=== PATIENT | female | born 1945 | race American Indian/Alaskan Native ===

== ENCOUNTER 2018-04-17 17:26 | Inpatient (IN) | payer MEDICARE ==
[2018-04-17] MEDS ORDERED: ASPIRIN PO ONE (17:38)
[2018-04-17 18:07] LABS: Basophils % (Auto) 0.3 % (0.0-1.8); Eosinophils # (Auto) 0.1 K/mm3 (0.0-0.4); Eosinophils % (Auto) 0.5 % (0.0-4.3); Hematocrit 44.7 % (30.3-42.9); Hemoglobin 14.3 gm/dl (10.1-14.3); Lymphocytes # (Auto) 2.4 K/mm3 (1.2-5.4); Lymphocytes % (Auto) 21.2 % (13.4-35.0); Mean Corpuscular HGB Conc 32 % (30-34); Mean Corpuscular Volume 80 fl (79-97); Monocytes # (Auto) 1.3 K/mm3 (0.0-0.8); Monocytes % (Auto) 11.3 % (0.0-7.3); Platelet Count 229 K/mm3 (140-440); Red Blood Count 5.58 M/mm3 (3.65-5.03); Red Cell Distribution Width 15.6 % (13.2-15.2)
[2018-04-17 18:08] LABS: Mean Corpuscular Hemoglobin 26 pg (28-32)
[2018-04-17 18:58] LABS: BUN/Creatinine Ratio 28; Blood Urea Nitrogen 42 mg/dL (7-17); Calcium 8.9 mg/dL (8.4-10.2); Hemolysis Index 5
[2018-04-17] MEDS ORDERED: ASPIRIN ONE (21:03)
--- NOTE | 2018-04-17 22:44 | Emergency Department Report ---
HPI - General Chief Complaint: Abdominal Pain Time Seen by Provider: 04/17/18 22:26 - HPI HPI: Room 7 The patient is a 72-year-old female presented with a chief complaint of intermittent abdominal and chest pain. The patient states the past 3 weeks she' s had intermittent pain in the lower abdomen but also realizes up to the left chest. Patient describes the pain as a burning pressure-like pain that lasts several minutes when it comes on. Patient denies shortness of breath, nausea/ vomiting or diaphoresis with her chest discomfort. There is no history of cough. The patient states she's never had a stress test or cardiac catheterization Location: [See above] Duration: Intermittent 3 weeks Quality: Burning/pressure Severity: Moderate Modifying factors: [see above] Context: [see above] Mode of transportation: [not driving] ED Past Medical Hx - Past Medical History Hx Hypertension: Yes Hx of Cancer: Yes (breast CA s/p xrt/chemo in remission) Hx Arthritis: Yes - Surgical History Additional Surgical History: Breast surgery - Family History Family history: no significant - Social History Smoking Status: Former Smoker (none 6 months) Substance Use Type: None ED Review of Systems ROS: Stated complaint: ABDOMINAL PAIN Other details as noted in HPI Constitutional: denies: diaphoresis, fever Eyes: denies: eye pain ENT: denies: throat pain Respiratory: denies: shortness of breath Cardiovascular: chest pain Gastrointestinal: abdominal pain. denies: nausea, vomiting Genitourinary: denies: dysuria Musculoskeletal: denies: back pain Neurological: denies: headache Physical Exam - Physical Exam Vital Signs: Vital Signs 04/17/18 04/17/18 04/17/18 17:30 20:35 20:43 Temperature 98.6 F 98.1 F Pulse Rate 73 68 Respiratory 18 18 19 Rate Blood Pressure 157/88 Blood Pressure 139/77 [Right] O2 Sat by Pulse 97 98 99 Oximetry 04/17/18 04/17/18 04/17/18 20:45 21:00 21:15 Temperature Pulse Rate 66 63 65 Respiratory 15 16 19 Rate Blood Pressure 139/77 154/81 160/89 Blood Pressure [Right] O2 Sat by Pulse 96 96 97 Oximetry 04/17/18 04/17/18 21:28 21:30 Temperature Pulse Rate 56 L Respiratory 17 19 Rate Blood Pressure 171/84 Blood Pressure [Right] O2 Sat by Pulse 98 98 Oximetry Physical Exam: GENERAL: The patient is well-developed well-nourished female sitting on stretcher eating Fritos not appearing to be in acute distress. [] HEENT: Normocephalic. Atraumatic. Extraocular motions are intact. Patient has moist mucous membranes. NECK: Supple. Trachea midline CHEST/LUNGS: Clear to auscultation. There is no respiratory distress noted. HEART/CARDIOVASCULAR: Regular. There is no tachycardia. There is no gallop rub or murmur. ABDOMEN: Abdomen is soft, with mild discomfort to palpation in the left lower quadrant. There is no rebound or guarding. Patient has normal bowel sounds. There is no abdominal distention. SKIN: There is no rash. There is no diaphoresis. NEURO: The patient is awake, alert, and oriented. The patient is cooperative. The patient has normal speech MUSCULOSKELETAL: There is no evidence of acute injury. ED Course Vital Signs 04/17/18 04/17/18 04/17/18 17:30 20:35 20:43 Temperature 98.6 F 98.1 F Pulse Rate 73 68 Respiratory 18 18 19 Rate Blood Pressure 157/88 Blood Pressure 139/77 [Right] O2 Sat by Pulse 97 98 99 Oximetry 04/17/18 04/17/18 04/17/18 20:45 21:00 21:15 Temperature Pulse Rate 66 63 65 Respiratory 15 16 19 Rate Blood Pressure 139/77 154/81 160/89 Blood Pressure [Right] O2 Sat by Pulse 96 96 97 Oximetry 04/17/18 04/17/18 21:28 21:30 Temperature Pulse Rate 56 L Respiratory 17 19 Rate Blood Pressure 171/84 Blood Pressure [Right] O2 Sat by Pulse 98 98 Oximetry ED Medical Decision Making - Lab Data Result diagrams: 04/17/18 17:49 04/17/18 17:49 Laboratory Tests 04/17/18 04/17/18 04/17/18 17:49 17:49 19:27 WBC 11.4 H RBC 5.58 H Hgb 14.3 Hct 44.7 H MCV 80 MCH 26 L MCHC 32 RDW 15.6 H Plt Count 229 Lymph % (Auto) 21.2 [place] % (Auto) 11.3 H Eos % (Auto) 0.5 Baso % (Auto) 0.3 Lymph # 2.4 [place] # 1.3 H Eos # 0.1 Baso # 0.0 Seg Neutrophils % 66.7 Seg Neutrophils # 7.6 Sodium 138 Potassium 3.4 L Chloride 94.3 L Carbon Dioxide 25 Anion Gap 22 BUN 42 H Creatinine 1.5 H Estimated GFR 41 BUN/Creatinine Ratio 28 Glucose 188 H Calcium 8.9 Troponin T < 0.010 < 0.010 - EKG Data -: EKG Interpreted by Me EKG shows normal: sinus rhythm Rate: normal - EKG Data When compared to previous EKG there are: previous EKG unavailable Interpretation: other (no ischemic changes seen) - Radiology Data Radiology results: report reviewed (CT abdomen and pelvis, chest x-ray), image reviewed (CT abdomen and pelvis, chest x-ray) interpreted by me: Chest x-ray-no focal infiltrates, no pneumothorax CT abdomen and pelvis (read by radiologist)-minimally complex renal cyst. Recommend follow-up 6 months to evaluate for stability. Otherwise no acute findings Chest x-ray (read by radiologist)-negative single view chest x-ray - Differential Diagnosis ACS, pericarditis, diverticulitis, GERD Critical care attestation.: If time is entered above; I have spent that time in minutes in the direct care of this critically ill patient, excluding procedure time. ED Disposition Clinical Impression: Chest pain, Abdominal discomfort Disposition: DC-09 OP ADMIT IP TO THIS HOSP Is pt being admited?: Yes Does the pt Need Aspirin: Yes Condition: Fair Instructions: Chest Pain (ED), Abdominal Pain (ED) Referrals: PRIMARY CARE, [Primary Care Provider] - 3-5 Days Time of Disposition: 23:42 (hospitalist paged (Dr Marti))
--- NOTE | 2018-04-17 23:17 | XRay Report ---
FINAL REPORT EXAM: XR CHEST 1V AP HISTORY: chest pain TECHNIQUE: upright single view chest PRIORS: None. FINDINGS: Cardiac and mediastinal contours are unremarkable. No focal pulmonary infiltrate is identified. No pleural fluid collection seen. Pulmonary vasculature is unremarkable. IMPRESSION: Negative single-view chest
--- NOTE | 2018-04-17 23:28 | Cat Scan Report ---
FINAL REPORT EXAM: CT ABDOMEN PELVIS WO CON HISTORY: left lower quadrant tenderness TECHNIQUE: CT abdomen and pelvis without contrast PRIORS: None. FINDINGS: No acute abnormality identified in the lung bases. No focal abnormality identified within the liver parenchyma. The spleen demonstrates normal size and attenuation. No pancreatic abnormalities seen. The right kidney demonstrates no evidence for hydronephrosis or nephrolithiasis. There is a 1 centimeter hyperdense structure lower pole right kidney which is intrarenal most likely hyperdense cyst. The left kidney demonstrates no evidence for hydronephrosis. At the mid left kidney there is a cortical complex appearing 1.3 x 1.0 centimeter structure thick calcifications incompletely characterized however most consistent with a minimally complex cyst. The adrenal glands are unremarkable. Abdominal aorta is normal in caliber. No pathologically enlarged lymph nodes are identified. No signs of free fluid or free air No evidence of small bowel dilatation. No evidence of colonic dilatation. No pericolonic inflammatory change seen. IMPRESSION: Minimally complex renal cysts. Recommend followup approximately 6 months to evaluate for stability. Otherwise no acute findings
[2018-04-18] MEDS ORDERED: MORPHINE IV PRN (00:39)
[2018-04-18] MEDS ORDERED: ZOFRAN IV PRN (00:40)
[2018-04-18] MEDS ORDERED: TYLENOL PO PRN (00:41)
[2018-04-18] MEDS ORDERED: NITROSTAT SL PRN (00:42)
[2018-04-18] MEDS ORDERED: XANAX PO PRN (00:43)
[2018-04-18] MEDS: HEPARIN SUB-Q SCH ×3 (00:50→21:34)
[2018-04-18] MEDS ORDERED: HEPARIN ONE (00:56)
[2018-04-18] MEDS: NITRO-BID 2% TP SCH ×5 (03:32→17:45)
[2018-04-18] MEDS ORDERED: NORCO 5/325 PO PRN (04:41)
[2018-04-18 05:50] LABS: BUN/Creatinine Ratio 29; Blood Urea Nitrogen 41 mg/dL (7-17); Calcium 8.5 mg/dL (8.4-10.2); Hemolysis Index 8
[2018-04-18 05:52] LABS: Creatine Kinase MB < 1.0 ng/mL (0.0-4.0)
[2018-04-18] MEDS ORDERED: K-DUR PO NR (07:47)
[2018-04-18] MEDS: XANAX PO SCH ×3 (08:00→21:34)
[2018-04-18] MEDS ORDERED: LEXISCAN IV NR (08:54)
[2018-04-18] MEDS ORDERED: COREG PO SCH (10:00)
[2018-04-18] MEDS ORDERED: BIFID ANIMALIS PO SCH (10:00)
[2018-04-18] MEDS ORDERED: QUINAPRIL HCL 40 MG PO SCH (10:00)
[2018-04-18] MEDS ORDERED: ZESTRIL PO SCH (10:00)
[2018-04-18] MEDS ORDERED: NON-FORMULARY (Solifenacin Succinate [Vesicare] 5 MG) PO SCH (10:00)
[2018-04-18] MEDS ORDERED: BUMEX PO SCH (10:00)
[2018-04-18] MEDS ORDERED: NON-FORMULARY (Bumetanide [Bumetanide 2 Mg Tab] 2 MG) PO SCH (10:00)
[2018-04-18] MEDS ORDERED: ACIDOPHILUS PO SCH (10:00)
--- NOTE | 2018-04-18 10:23 | Consultation ---
History of Present Illness - Reason for Consult Consult date: 04/18/18 acute renal failure, chronic renal failure - History of Present Illness patient with h/o HTN and CKD) does not know what stage) was admitted to worsening abd and chest pain. CT pelvis was negative for acute process but did show L complex renal cyst. chest xway was negative for pulm edema and negative troponin. renal consult was requested for abnormal kidney function, according to patient she has kidney disease and she does follow up with a clerk of works ( Dr Alves). Past History Past Medical History: hypertension (CKD), other (CKD) Medications and Allergies Allergies Allergy/AdvReac Type Severity Reaction Status Date / Time No Known Allergies Allergy Verified 04/17/18 21:05 Home Medications Medication Instructions Recorded Confirmed Last Taken Type ALPRAZolam [Xanax] 1 mg PO TID 04/18/18 04/18/18 Unknown History Bumetanide [Bumetanide 2 mg tab] 2 mg PO DAILY 04/18/18 04/18/18 Unknown History Carvedilol [Coreg] 6.25 mg PO DAILY 04/18/18 04/18/18 Unknown History Fluticasone [Flonase] 1 spray NS QDAY 04/18/18 04/18/18 Unknown History HYDROcodone/ACETAMINOPHEN 1 each PO Q6H PRN 04/18/18 04/18/18 Unknown History [Hydrocodon-Acetaminophen 5-325] L. Acidophilus/Bifid. Animalis 1 each PO DAILY 04/18/18 04/18/18 Unknown History [One-A-Day Trubiotics Capsule] Quinapril HCl 40 mg PO DAILY 04/18/18 04/18/18 Unknown History Solifenacin Succinate [Vesicare] 5 mg PO DAILY 04/18/18 04/18/18 Unknown History Active Meds: Active Medications Acetaminophen (Tylenol) 650 mg PO Q4H PRN PRN Reason: For Pain/Fever/Headache Acetaminophen/Hydrocodone Bitart (Muir 5/325) 1 each PO Q6H PRN PRN Reason: Pain Alprazolam (Xanax) 1 mg PO TID [facility] Last Admin: 04/18/18 08:00 Dose: Not Given Aspirin (Aspirin) 325 mg PO QDAY [facility] Bumetanide (Bumex) 2 mg PO DAILY [place] Bumetanide (Bumex) 1 mg PO QDAY [facility] Carvedilol (Coreg) 6.25 mg PO DAILY [facility] Carvedilol (Coreg) 12.5 mg PO BID [facility] Fluticasone Propionate (Flonase) 50 mcg NS QDAY [facility] Heparin Sodium (Porcine) (Heparin) 5,000 unit SUB-Q Q12HR [facility] Last Admin: 04/18/18 00:50 Dose: 5,000 unit Miscellaneous Medication (L. Acidophilus/Bifid. Animalis [One-A-Day Trubiotics Capsule]) 1 each PO DAILY [facility] Miscellaneous Medication (Solifenacin Succinate [Vesicare]) 5 mg PO DAILY [facility] Morphine Sulfate (Morphine) 2 mg IV Q5MIN PRN PRN Reason: Chest Pain Nitroglycerin (Nitrostat) 0.4 mg SL .Q5MIN PRN PRN Reason: Chest Pain Nitroglycerin (Nitro-Bid 2%) 1 inch TP QIDNTG [facility]; Protocol Last Admin: 04/18/18 06:57 Dose: Not Given Ondansetron HCl (Zofran) 4 mg IV Q6H PRN PRN Reason: Nausea And Vomiting Pneumococcal Polyvalent Vaccine (Pneumovax 23) 0.5 ml IM .ONCE ONE Stop: 04/18/18 12:01 Review of Systems All systems: negative (chest pain, abdominal pain) Exam - Vital Signs Vital signs: Vital Signs Temp Pulse Resp BP Pulse Ox 98.6 F 73 18 157/88 97 04/17/18 17:30 04/17/18 17:30 04/17/18 17:30 04/17/18 17:30 04/17/18 17:30 - General Appearance General appearance: well-developed, well-nourished, appears stated age EENT: ATNC, PERRL, mucous membranes moist Neck: Present: neck supple Respiratory: Clear to Ascultation Heart: regular, S1S2 Gastrointestinal: Present: normoactive bowel sounds. Absent: tenderness, distended, obese Integumentary: no rash, warm and dry Neurologic: no focal deficit, no asterixis, alert and oriented x3 Musculoskeletal: Present: other (no edema in BLE) Psychiatric: mood/affect appropriate, cooperative Results - Lab Results 04/17/18 17:49 04/18/18 04:39 Most recent lab results Calcium 8.5 mg/dL (8.4-10.2) 04/18/18 04:39 Assessment and Plan acute on chronic kidney failure - unclear baseline, CKD according to patient - no pulm congestion or edema, will decrease bumex to 1m g qday - will hold lisinopril for now - urine lytes and protein ordered - renally dose meds - renal diet - strict I&O - daily weights Chest pain - stress test this AM - negative troponin but elevated D-dimer - on ASA Abd pain - CT abd pelvis negative for acute prcoess HTN - will d/c lisinopril as above, will increase coreg to 12.5 mg BID Cyst of the kidney - will need to be followed as an outpatient thank you for allowing to participate in Ms Cabrera's care. please call me with if you have questions [phone]
[2018-04-18] MEDS: ASPIRIN PO SCH (11:29)
[2018-04-18] MEDS: FLONASE NS SCH (11:30)
[2018-04-18] MEDS ORDERED: PNEUMOVAX 23 IM ONE (12:00)
[2018-04-18] MEDS ORDERED: K-DUR PO ONE (12:22)
--- NOTE | 2018-04-18 14:05 | Event Note ---
Date: 04/18/18 Pt seen and examined Presented with abdominal pain and PABLO Noted elevated d-dimer, will obtain VQ scan for possible PE cont current mx and plan as dictated in H and P.
[2018-04-18 17:15] LABS: Creatine Kinase MB < 1.0 ng/mL (0.0-4.0)
[2018-04-18 18:24] LABS: Creatinine,Urine 42.7 mg/dL (0.1-20.0); Protein/Creatinine Ratio,Urine 0.14
[2018-04-18 18:30] LABS: Creatinine,Urine 42.7 mg/dL (0.1-20.0)
[2018-04-18] MEDS: COREG PO SCH (21:33)
[2018-04-19] MEDS: NITRO-BID 2% TP SCH ×2 (05:51→10:40)
[2018-04-19] MEDS ORDERED: PEPCID PO SCH (10:00)
[2018-04-19] MEDS ORDERED: BUMEX PO SCH (10:00)
[2018-04-19] MEDS: XANAX PO SCH (10:38)
[2018-04-19] MEDS: ASPIRIN PO SCH (10:38)
[2018-04-19] MEDS: FLONASE NS SCH (10:39)
[2018-04-19] MEDS: COREG PO SCH (10:39)
[2018-04-19] MEDS: HEPARIN SUB-Q SCH (10:40)
[2018-04-19 10:48] LABS: Basophils % (Auto) 0.4 % (0.0-1.8); Eosinophils # (Auto) 0.1 K/mm3 (0.0-0.4); Eosinophils % (Auto) 1.5 % (0.0-4.3); Hematocrit 44.6 % (30.3-42.9); Hemoglobin 14.5 gm/dl (10.1-14.3); Lymphocytes # (Auto) 2.5 K/mm3 (1.2-5.4); Lymphocytes % (Auto) 26.3 % (13.4-35.0); Mean Corpuscular HGB Conc 32 % (30-34); Mean Corpuscular Volume 80 fl (79-97); Monocytes # (Auto) 0.9 K/mm3 (0.0-0.8); Monocytes % (Auto) 9.4 % (0.0-7.3); Platelet Count 184 K/mm3 (140-440); Red Blood Count 5.59 M/mm3 (3.65-5.03); Red Cell Distribution Width 15.1 % (13.2-15.2)
[2018-04-19 10:51] LABS: Mean Corpuscular Hemoglobin 26 pg (28-32)
--- NOTE | 2018-04-19 12:49 | Nuclear Perfusion Study ---
SINGLE ISOTOPE DUAL STUDY MYOCARDIAL PERFUSION SCAN REFERRING PHYSICIAN: Clement Marti MD, hospitalist DESCRIPTION OF PROCEDURE: The patient received 10 mCi of technetium 99m Myoview intravenously under resting conditions. Resting myocardial perfusion scan was done. Subsequently, the patient underwent Lexiscan stress test as per the protocol. During Lexiscan stress test, the patient received 28 mCi of technetium 99m Myoview intravenously. After 30-60 minutes, post stress images were done. Computerized reconstruction images were performed for analysis. The post-stress images revealed uniform distribution of the radiopharmaceutical in the left ventricular myocardium. Cinematic display of the gated study did not reveal any wall motion abnormality. The left ventricular function was normal and was calculated to be 73%. The resting images were also normal. CONCLUSION: 1. No perfusion abnormality of the left ventricular myocardium was demonstrated in the resting as well as stress images obtained after the patient underwent Lexiscan stress test. 2. No wall motion abnormality. 3. Normal left ventricular ejection fraction of 73%. [facility]
--- NOTE | 2018-04-19 14:29 | Discharge Summary ---
Providers - Providers Date of Admission: 04/18/18 00:35 Date of discharge: 04/19/18 Attending physician: KEN BARR 04/18/18 06:52 Consult to Physician [CONS] Routine Comment: Consulting Provider: BLANCA GONG Physician Instructions: Reason For Exam: PABLO 04/19/18 13:32 Physical Therapy Evaluation and Treat [CONS] Routine Comment: Reason For Exam: placement Primary care physician: MAO QUESADA Hospitalization Condition: Fair Hospital course: Discharge diagnosis: /acute on chronic kidney failure /Chest pain, likely GERD /Abd pain, resolved - CT abd pelvis negative for acute prcoess /HTN - d/c lisinopril and increased coreg to 12.5 mg BID /Cyst of the kidney - will need to be followed as an outpatient /Elevated d-dimer, VQ scan obtained Disposition: TO HOME OR SELFCARE Time spent for discharge: 32 minutes Core Measure Documentation - Palliative Care Palliative Care/ Comfort Measures: Not Applicable - Core Measures Any of the following diagnoses?: none Exam - Constitutional Vitals: Temp Pulse Resp BP Pulse Ox 98.4 F 71 20 116/53 100 04/19/18 12:00 04/19/18 12:00 04/19/18 12:00 04/19/18 12:00 04/19/18 12:00 General appearance: Present: no acute distress, well-nourished - EENT Eyes: Present: PERRL ENT: hearing intact, clear oral mucosa - Neck Neck: Present: supple, normal ROM - Respiratory Respiratory effort: normal Respiratory: bilateral: CTA - Cardiovascular Heart Sounds: Present: S1 & S2. Absent: rub, click - Extremities Extremities: pulses symmetrical, No edema Peripheral Pulses: within normal limits - Abdominal General gastrointestinal: Present: soft, non-tender, non-distended, normal bowel sounds - Integumentary Integumentary: Present: clear, warm, dry - Musculoskeletal Musculoskeletal: gait normal, strength equal bilaterally - Psychiatric Psychiatric: appropriate mood/affect, intact judgment & insight - Neurologic Neurologic: CNII-XII intact, moves all extremities Plan Activity: advance as tolerated Weight Bearing Status: Weight Bear as Tolerated Diet: low fat, low salt, renal Follow up with: PRIMARY CARE, [Referring] - 3-5 Days Prescriptions: AtorvaSTATin [Lipitor] 20 mg PO QHS #30 tab Aspirin [Aspirin EC] 81 mg PO DAILY #30 tablet. Bumetanide [Bumex 1 mg tab] 1 mg PO QDAY #20 tablet Carvedilol [Coreg] 12.5 mg PO BID #60 tablet
[2018-04-19 15:34] VITALS: BP 120/70
--- NOTE | 2018-04-19 16:03 | Progress Note ---
Assessment and Plan Acute on chronic kidney disease: -Renal function reviewed, stable, SCr level was 1.4 today, yesterday's SCr level was 1.4 -Renally dose meds -On bumex 1 mg orally once a day -Howard Catheter: No -Renal plan d/w Dr Mcintyre -Continue supportive therapy Chest pain: -Stress test (draft report) showed no perfusion abnormality of left myocardium, no wall motion abnormality, and normal LVEF 73% -Negative troponin but elevated D-dimer -On ASA Abdominal Pain: -CT abd pelvis negative for acute process Essential Hypertension: -On coreg 12.5 mg orally BID -Holding lisinopril Cyst of the kidney: -Will need to be followed as an outpatient Subjective Date of service: 04/19/18 Interval history: Pt reports feeling ok today, no complaints voiced, states she is getting discharged home today. No family at bedside Objective - Vital Signs Vital signs: Vital Signs - 12hr 04/19/18 04/19/18 04/19/18 05:09 05:52 07:20 Temperature 9.6 F L 98.4 F Pulse Rate 68 67 69 Pulse Rate [ Apical] Respiratory 20 20 Rate Blood Pressure 144/84 Blood Pressure 144/84 145/100 [Right] O2 Sat by Pulse 99 100 99 Oximetry 04/19/18 04/19/18 04/19/18 10:00 12:00 15:33 Temperature 98.4 F 97.4 F L Pulse Rate 72 74 66 Pulse Rate [ 76 Apical] Respiratory 18 20 20 Rate Blood Pressure Blood Pressure 116/53 120/70 [Right] O2 Sat by Pulse 99 100 Oximetry - General Appearance General appearance: well-developed (no acute distress) EENT: ATNC Neck: no JVD Respiratory: Present: Clear to Ascultation Cardiology: regular, S1S2 Gastrointestinal: normoactive bowel sounds, no tenderness Integumentary: warm and dry Neurologic: alert and oriented x3 Musculoskeletal: other (no edema to both lower extremities) Psychiatric: mood/affect appropriate, cooperative - Lab 04/19/18 10:08 04/19/18 10:08 Most recent lab results Calcium 9.0 mg/dL (8.4-10.2) 04/19/18 10:08 Phosphorus 3.00 mg/dL (2.5-4.5) 04/19/18 10:08 Urine Creatinine 42.7 mg/dL (0.1-20.0) H 04/18/18 17:55 Urine Sodium 85 mmol/L 04/18/18 10:23 Urine Total Protein 6 mg/dL (5-11.8) 04/18/18 17:55
--- NOTE | 2018-04-21 05:07 | History and Physical Report ---
CHIEF COMPLAINT: Abdominal pain. OTHER COMPLAINT: Include chest pain. HISTORY OF PRESENT ILLNESS: The patient is a 72-year-old female who states she has been having abdominal pain going on and off for about 3 weeks, then started having some left-sided chest pain which she described as pressure-like sensation that lasts for some minutes when it comes. No history of shortness of breath. No history of nausea or vomiting. No history of diaphoresis. The patient also denied history of fever, cough, or chills and presented for evaluation. The patient's pain is intermittent and lasts for few minutes when it happens. PAST MEDICAL HISTORY: Pertinent for hypertension, breast cancer, status post chemo and radiation therapy and in remission. Also, the patient has past history of arthritis. PAST SURGICAL HISTORY: Pertinent for breast surgery. FAMILY HISTORY: Noncontributory. SOCIAL HISTORY: The patient used to smoke cigarette and does not smoke currently, does not drink alcohol and does not use illicit drugs. MEDICATION: The patient's home medications include alprazolam 1 mg by mouth 3 times daily as needed for anxiety, bumetanide 2 mg by mouth daily, also the patient is on carvedilol 6.25 mg by mouth daily, the patient is on Flonase 1 spray nasally daily. The patient is also on hydrocodone/acetaminophen 5/325 mg 1 by mouth every 6 hours as needed for pain. The patient is on Probiotic acidophilus/Bifidobacterium animalis 1 by mouth daily. The patient is also on quinapril 40 mg daily. The patient is also on solifenacin succinate 5 mg by mouth daily. ALLERGIES: There are no known drug allergies. REVIEW OF SYSTEMS: CONSTITUTIONAL: No fever, no chills, no diaphoresis. HEENT: There is no headache or sore throat. CARDIOVASCULAR: Chest pain is present. No orthopnea. RESPIRATORY: There is no shortness of breath or cough. GASTROINTESTINAL: Abdominal pain is present. There is no nausea or vomiting and no diarrhea or constipation. NEUROLOGICAL: There is no numbness, no dizziness, no altered mental status. MUSCULOSKELETAL: There is no joint pain or swelling. DERMATOLOGICAL: There is no skin rash or itching. GENITOURINARY: There is no dysuria, hematuria or flank pain. Rest of system review is normal. PHYSICAL EXAMINATION: GENERAL: At the time of exam, the patient was found to be alert, oriented x 3 and not in acute distress. VITAL SIGNS: Shows temperature of 98 degree Fahrenheit, pulse of 66, respirations 18, blood pressure of 140/68, O2 sat of 96% on room air. HEENT: Showed pupils to be equal, round, reactive to light and accommodation. Extraocular muscles are intact. NECK: Supple with no JVD. CARDIOVASCULAR: Showed normal first and second heart sounds with no gallops or murmurs. RESPIRATORY: Show good air entry on both sides of the lungs with no abnormal breath sounds. GASTROINTESTINAL SYSTEM: Show abdomen to be full, soft, nontender with no organomegaly or rigidity. NEUROLOGIC: Shows no focal deficit. MUSCULOSKELETAL: Shows no joint swelling or tenderness. DERMATOLOGICAL SYSTEM: Show no skin rash. GENITOURINARY: Showing no costovertebral angle tenderness. PERTINENT LABORATORY AND IMAGING STUDIES: The patient has CBC done with elevated white count of 11,400, normal hemoglobin and slightly elevated hematocrit of 44.7% with CBC differential showing elevated monocyte count of 11.3. Coagulation studies show very high D-dimer of 1780. The patient's chemistry show low potassium of 3.4 with low chloride of 94.3, normal sodium level with elevated BUN of 42 and elevated creatinine of 1.5 and high glucose level of 188. The patient's troponin level came back unremarkable. IMAGING STUDIES: The patient has CT of the abdomen and pelvis done that showed minimally complex renal cyst and radiologist recommended follow up approximately 6 months to evaluate for stability. DIAGNOSES: 1. Chest pain. 2. Abdominal pain. 3. Acute kidney injury. 4. Renal cyst, findings on CAT scan of the abdomen. PLAN: The patient will be admitted to medical floor on telemetry and we will have cardiac enzyme, troponin, total CK, and CK-MB checked q. 6 hours x 2 more level. CARE OF PLAN: 1. The patient will be n.p.o. for Lexiscan stress test in the morning. 2. The patient will be on aspirin 325 mg by mouth daily and will be on Tylenol 650 mg by mouth every 4 hours for fever and headache. 3. The patient will be on morphine 2 mg IV every 5 minutes as needed for pain. 4. The patient will be on nitro paste 1 inch to anterior chest wall ____. 5. The patient will be on nitroglycerin sublingual 0.4 mg every 5 minutes as needed for pain. 6. The patient will be on IV Zofran 4 mg every 6 hours as needed for nausea and vomiting. 7. The patient will be on oxygen via nasal cannula at 2 liter per minute. 8. The patient will be n.p.o. for Lexiscan stress test in the morning. 9. The patient will have basic metabolic panel checked in the morning. 10. The patient will have Nephrology consult with Dr. Burgess for acute kidney injury. 11. The patient will follow as outpatient with the finding of renal cyst on CT of the abdomen and pelvis for further evaluation. 12. The patient's home medications will be started as shown in the medication reconciliation section. JOB# [id number] OCN/NTS
--- NOTE | 2018-04-21 09:24 | Treadmill Report ---
SINGLE ISOTOPE DUAL STUDY MYOCARDIAL PERFUSION SCAN REFERRING PHYSICIAN: Clement Marti MD, hospitalist DESCRIPTION OF PROCEDURE: The patient received 10 mCi of technetium 99m Myoview intravenously under resting conditions. Resting myocardial perfusion scan was done. Subsequently, the patient underwent Lexiscan stress test as per the protocol. During Lexiscan stress test, the patient received 28 mCi of technetium 99m Myoview intravenously. After 30-60 minutes, post stress images were done. Computerized reconstruction images were performed for analysis. The post-stress images revealed uniform distribution of the radiopharmaceutical in the left ventricular myocardium. Cinematic display of the gated study did not reveal any wall motion abnormality. The left ventricular function was normal and was calculated to be 73%. The resting images were also normal. CONCLUSION: 1. No perfusion abnormality of the left ventricular myocardium was demonstrated in the resting as well as stress images obtained after the patient underwent Lexiscan stress test. 2. No wall motion abnormality. 3. Normal left ventricular ejection fraction of 73%. [facility]# [id number] [facility]
== END 2018-04-19 16:16 | disposition home or self-care (01) | DRG 392 ==
LOC: ED 17:26 → 4A 04-18 00:35
PROVIDERS: ADMIT Internal Medicine; ATTEND Internal Medicine
PROC: 3E0234Z Introduction of Serum, Toxoid and Vaccine into Muscle, Percutaneous Approach (ICD-10-PCS; principal; 2018-04-18)
DX: K21.9 Gastro-esophageal reflux disease without esophagitis (principal); N17.9 Acute kidney failure, unspecified; R10.9 Unspecified abdominal pain; Z85.3 Personal history of malignant neoplasm of breast; M19.90 Unspecified osteoarthritis, unspecified site; Z87.891 Personal history of nicotine dependence; I12.9 Hypertensive chronic kidney disease with stage 1 through stage 4 chronic kidney disease, or unspecified chronic kidney disease; N18.9 Chronic kidney disease, unspecified; N28.1 Cyst of kidney, acquired; Z23 Encounter for immunization
CPT/HCPCS: 36415; 71045; 74176; 78452; 78582; 80048; 82550; 82553; 82570; 84100; 84156; 84300; 84484; 85025; 85379; 90732; 93005; 93010; 93017; 99406; A9502; A9540; A9558; J1644; J2785